=== PATIENT | male | born 1995 | race Caucasian/White ===

== ENCOUNTER 2020-05-28 06:54 | Emergency (ER) | payer OTHER, SELFPAY ==
--- NOTE | 2020-05-28 07:11 | ED_ITS ---
HPI - Arrhythmia/Palpitations General Chief Complaint: Arrhythmia/Palpitations Stated Complaint: PALPITATIONS Time Seen by Provider: 05/28/20 07:11 Source: patient Mode of arrival: ambulatory Limitations: no limitations History of Present Illness MD complaint: rapid heart beat, heart racing and palpitations Onset (ago): hour(s) (1) Duration: constant Severity: moderate Context: occurred during rest and awoke with symptoms Associated symptoms: shortness of breath, nausea and muscle cramps (L arm felt heavy and tingling) Related Data Allergies Allergy/AdvReac Type Severity Reaction Status Date / Time No Known Allergies Allergy Verified 05/28/20 07:16 [No Known Allergies*] Review of Systems Review of Systems: Constitutional : No Weight loss, No Fever, No Chills ENT/Mouth : No sore throat, No Rhinorrhea Eyes: No Eye Pain, No Swelling Cardiovascular : pos Chest Pain, pos SOB, no Dyspnea on Exertion, No Orthopnea, No Edema, pos Palpitations Respiratory : No Cough, No Sputum Gastrointestinal : pos Nausea, No Vomiting, No Diarrhea, No abdominal Pain, No Hematochezia, No Melena Genitourinary : No Dysuria, No Urinary Frequency Musculoskeletal : No joint pain, No Myalgias, No Joint Swelling Skin : No Skin Lesions, No rash Neuro : No Weakness, No Numbness, No Dizziness, No Headache Psych : No Anxiety/Panic, No Depression All other systems reviewed and are negative [facility] Social History Social History (Updated 05/28/20 @ 07:27 by Lizeth Aguirre DO) Alcohol intake: never Smoking Status: Current every day smoker Smoked in Last 30 Days: Yes Use of substances other than those prescribed or required for medical reasons: No Advance Directives: No Advance Directives Information Provided: No Physical Exam Vital Signs: Vital Signs: Vital Signs Temp Pulse Resp BP Pulse Ox 05/28/20 09:41 87 122/75 98 05/28/20 07:16 98.2 F 101 H 20 155/90 H 99 Body Mass Index 0.3 Appearance: Alert. Oriented X3. No acute distress. Anxious Eyes: Pupils equal, round and reactive to light. ENT: Pharynx normal. Neck: Normal inspection. Neck supple. CVS: tachycardic heart rate and rhythm. Pulses normal. Respiratory: No respiratory distress. Breath sounds normal. Abdomen: Soft and nontender. Skin: Skin warm and dry. Normal skin color. Normal skin turgor. Extremities: No lower extremity edema. No calf ttp Neuro: Oriented X 3. No motor deficit. No sensory deficit. Course Course Course Narrative: feels better negative workup, delta trop negative, stable for DC MDM - Arrhythmia/Palpitations MDM Narrative Medical decision making narrative: 24 yo male without any significant ACS risk factors other than smoking comes in with CP/SOB and palpitations, has no calf pain or signs of DVT, does take [employer] supplements but denies steroids or testosterone use at this time will need labs, lytes, troponin, ddimer, dispo per results and findings, no distress distal pulses intact doubt dissection Lab Data Result diagrams: 05/28/20 07:28 05/28/20 07:28 Labs: Lab Results 05/28/20 05/28/20 05/28/20 Range/Units 07:28 07:28 07:28 WBC 8.1 (4.8-10.8) X10*3/uL RBC 5.29 (4.60-5.80) X10*6/uL Hgb 15.1 (14.0-18.0) g/dl Hct 45.9 (42-52) % MCV 86.8 (80-98) fL MCH 28.5 (27.0-33.0) pg MCHC 32.9 (31.0-36.0) g/dl RDW 13.1 (11.0-16.0) % Plt Count 345 (160-400) X10*3/uL MPV 10.0 (9.4-12.4) fL Immature Gran % (Auto) 0.2 (0.0-0.4) % Neut % (Auto) 62.6 (45-73) % Lymph % (Auto) 30.0 (20-40) % [place] % (Auto) 6.4 (2-11) % Eos % (Auto) 0.4 (0-4) % Baso % (Auto) 0.4 (0-2) % Lymph # (Auto) 2.4 (1.2-4.9) X10*3/uL [place] # (Auto) 0.5 (0.1-1.2) X10*3/uL Eos # (Auto) 0.0 (0.0-0.4) X10*3/uL Baso # (Auto) 0.0 (0.0-0.2) X10*3/uL Abs Immat Gran (auto) 0.02 (0.00-0.03) X10*3/uL Absolute Neuts (auto) 5.1 (2.0-8.3) X10*3/uL Absolute Nucleated RBC 0.000 (0.0-0.012) X10*3/uL Nucleated RBC % (auto) 0.0 (0.0-0.2) /100WBC D-Dimer < 200 NG/ML Sodium 137 (135-145) mmol/L Potassium 3.9 (3.3-5.1) mmol/l Chloride 100 (96-108) mmol/L Carbon Dioxide 26 (22-29) mmol/L Anion Gap 15 (12-20) BUN 8 L (9-16) mg/dL Creatinine 0.84 (0.5-1.4) mg/dL Estim Creat Clear Calc 192.1 Estimated GFR > 60 Random Glucose 154 H (60-115) mg/dL Calcium 10.1 (8.4-10.2) mg/dL Magnesium 1.8 (1.6-2.6) mg/dL Total Bilirubin 0.5 (0.0-1.0) mg/dL Direct Bilirubin < 0.2 (0.0-0.5) mg/dL AST 44 H (5-37) U/L ALT 109 H (0-40) U/L Alkaline Phosphatase 97 (39-117) U/L Troponin I High Sens (<3.5-35.0) ng/L Total Protein 7.5 (6.5-8.0) g/dL Albumin 4.7 (3.5-5.0) g/dL Lipase 17 (8-78) U/L TSH 3.46 (0.32-4.0) mIU/mL 05/28/20 05/28/20 Range/Units 07:28 09:25 WBC (4.8-10.8) X10*3/uL RBC (4.60-5.80) X10*6/uL Hgb (14.0-18.0) g/dl Hct (42-52) % MCV (80-98) fL MCH (27.0-33.0) pg MCHC (31.0-36.0) g/dl RDW (11.0-16.0) % Plt Count (160-400) X10*3/uL MPV (9.4-12.4) fL Immature Gran % (Auto) (0.0-0.4) % Neut % (Auto) (45-73) % Lymph % (Auto) (20-40) % [place] % (Auto) (2-11) % Eos % (Auto) (0-4) % Baso % (Auto) (0-2) % Lymph # (Auto) (1.2-4.9) X10*3/uL [place] # (Auto) (0.1-1.2) X10*3/uL Eos # (Auto) (0.0-0.4) X10*3/uL Baso # (Auto) (0.0-0.2) X10*3/uL Abs Immat Gran (auto) (0.00-0.03) X10*3/uL Absolute Neuts (auto) (2.0-8.3) X10*3/uL Absolute Nucleated RBC (0.0-0.012) X10*3/uL Nucleated RBC % (auto) (0.0-0.2) /100WBC D-Dimer NG/ML Sodium (135-145) mmol/L Potassium (3.3-5.1) mmol/l Chloride (96-108) mmol/L Carbon Dioxide (22-29) mmol/L Anion Gap (12-20) BUN (9-16) mg/dL Creatinine (0.5-1.4) mg/dL Estim Creat Clear Calc Estimated GFR Random Glucose (60-115) mg/dL Calcium (8.4-10.2) mg/dL Magnesium (1.6-2.6) mg/dL Total Bilirubin (0.0-1.0) mg/dL Direct Bilirubin (0.0-0.5) mg/dL AST (5-37) U/L ALT (0-40) U/L Alkaline Phosphatase (39-117) U/L Troponin I High Sens < 3.5 < 3.5 (<3.5-35.0) ng/L Total Protein (6.5-8.0) g/dL Albumin (3.5-5.0) g/dL Lipase (8-78) U/L TSH (0.32-4.0) mIU/mL ECG Data Attestation: I personally reviewed and interpreted this ECG as follows: ECG interpretation date: 05/28/20 ECG interpretation time: 07:28 Interpretation: Rate: 105 Rhythm: sinus tachycardia [place]: normal Normal P waves. Normal TOMAS. Normal QRS complex. ST T wave : nonspecific qTC: normal prior studies: none The study has been interpreted contemporaneously by me. . Discharge Plan Discharge Clinical Impression: Palpitations, Elevated LFTs Patient Disposition: Home, Self-Care Instructions: Heart Palpitations (ED) Additional Instructions: stop taking supplements, your doctor needs to recheck liver function in 1 week Referrals: Physician,Unknown [Primary Care Provider] - 1 week Stand Alone Forms: Work/School Release
--- NOTE | 2020-05-28 07:14 | ECG_ITS ---
Test Reason : PALPATATIONS Blood Pressure : / mmHG Vent. Rate : 105 BPM Atrial Rate : 105 BPM P-R Int : 134 ms QRS Dur : 098 ms QT Int : 334 ms P-R-T Axes : 053 089 -10 degrees QTc Int : 441 ms Sinus tachycardia Nonspecific T wave abnormality Abnormal ECG No previous ECGs available Referred By: Lizeth Aguirre Electronically Signed By:MARY CARMEN SNYDER MD
--- NOTE | 2020-05-28 07:15 | XR_ITS ---
EXAMINATION: XR CHEST CLINICAL INFORMATION: Palpitations COMPARISON: None TECHNIQUE: Frontal view of the chest was obtained. FINDINGS: The cardiomediastinal silhouette is within normal limits. The lungs are well expanded. There is no focal consolidation, edema, or effusion. No pneumothorax. No acute osseous abnormality. IMPRESSION: No evidence of acute process.
[2020-05-28 07:16] VITALS: BP 155/90; PULSE 101; RESP 20; TEMP 36.8; O2SAT 99
[2020-05-28 07:33] LABS: MANUAL DIFF FLAG NO
[2020-05-28 07:38] LABS: Basophils Percent Auto 0.4 % (0-2); Eosinophils Percent Auto 0.4 % (0-4); Hematocrit 45.9 % (42-52); Hemoglobin 15.1 g/dl (14.0-18.0); Imm Gran Abs Auto 0.02 X10*3/uL (0.00-0.03); Imm Gran Pct Auto 0.2 % (0.0-0.4); Lymphocytes Absolute Auto 2.4 X10*3/uL (1.2-4.9); Mean Corpuscular HGB Conc 32.9 g/dl (31.0-36.0); Mean Corpuscular Hemoglobin 28.5 pg (27.0-33.0); Mean Corpuscular Volume 86.8 fL (80-98); Monocytes Absolute Auto 0.5 X10*3/uL (0.1-1.2); Monocytes Percent Auto 6.4 % (2-11); Neutrophils Absolute Auto 5.1 X10*3/uL (2.0-8.3); Neutrophils Percent Auto 62.6 % (45-73); Platelet Count 345 X10*3/uL (160-400); Red Blood Count 5.29 X10*6/uL (4.60-5.80); Red Cell Distribution Width 13.1 % (11.0-16.0); White Blood Count 8.1 X10*3/uL (4.8-10.8)
[2020-05-28] MEDS: 0.9 % Sodium Chloride 1,000 ML 999 ML IVCONT (07:39)
[2020-05-28 08:01] VITALS: PULSE 95
[2020-05-28 08:06] LABS: Troponin-I High Sensitivity < 3.5 ng/L (<3.5-35.0)
[2020-05-28 08:13] LABS: Alanine Aminotransferase 109 U/L (0-40); Albumin Level 4.7 g/dL (3.5-5.0); Alkaline Phosphatase 97 U/L (39-117); Anion Gap 15 (12-20); Aspartate Amino Transferase 44 U/L (5-37); Bilirubin Direct < 0.2 mg/dL (0.0-0.5); Bilirubin Total 0.5 mg/dL (0.0-1.0); Blood Urea Nitrogen 8 mg/dL (9-16); Calcium 10.1 mg/dL (8.4-10.2); Carbon Dioxide 26 mmol/L (22-29); Chloride 100 mmol/L (96-108); Creatinine Clr Calc Pharmacy 192.1; Estimated Glomerular Filt Rate > 60; Glucose Random 154 mg/dL (60-115); Lipase 17 U/L (8-78); Magnesium 1.8 mg/dL (1.6-2.6); Potassium 3.9 mmol/l (3.3-5.1); Sodium 137 mmol/L (135-145); Total Protein 7.5 g/dL (6.5-8.0)
[2020-05-28 08:23] LABS: Thyroid Stimulating Hormone 3.46 mIU/mL (0.32-4.0)
[2020-05-28 08:41] LABS: D Dimer < 200 NG/ML
[2020-05-28 09:41] VITALS: BP 122/75; PULSE 87; O2SAT 98
[2020-05-28 10:15] LABS: Troponin-I High Sensitivity < 3.5 ng/L (<3.5-35.0)
== END 2020-05-28 11:29 | disposition home or self-care (01) ==
PROVIDERS: Emergency Provider Emergency Medicine
DX: R00.2 Palpitations (principal); R79.89 Other specified abnormal findings of blood chemistry; F17.200 Nicotine dependence, unspecified, uncomplicated
CPT/HCPCS: 36415; 71045; 80048; 80076; 83690; 83735; 84443; 84484; 85025; 85379; 93005; 96360; 99284

== ENCOUNTER 2021-06-24 19:18 | Emergency (ER) | payer OTHER, SELFPAY ==
[2021-06-24 19:59] VITALS: BP 118/75; PULSE 89; RESP 16; TEMP 36.8; O2SAT 97; BMI 33.9
[2021-06-24 20:25] LABS: COVID-19 Test Negative (Negative)
[2021-06-24 20:48] VITALS: BP 132/76; PULSE 84; RESP 14; TEMP 36.8; O2SAT 98
--- NOTE | 2021-06-24 20:58 | ED_ITS ---
HPI - Headache General Chief Complaint: Headache Stated Complaint: migraine Time Seen by Provider: 06/24/21 20:53 Source: patient Mode of arrival: ambulatory Limitations: no limitations History of Present Illness HPI Narrative: Patient comes emergency room complaining of a headache since yesterday. Patient complaining also of sinus pressure. Patient has tried to take Tylenol and ibuprofen without significant relief. Patient also used some nasal spray to help with the sinus pressure. Patient denies fever chills, no neck pain, no cough. Related Data Previous Rx's Medication Instructions Recorded acetaminophen 500 mg tablet 500 mg PO Q6H PRN #14 tab 06/24/21 fexofenadine 60 mg tablet (Kaitlynn 60 mg PO BID #7 tab 06/24/21 Allergy) fluticasone propionate 50 1 spray INTRANASAL BID #16 g 06/24/21 mcg/actuation nasal spray,suspension (Flonase Allergy Relief) metoclopramide HCl 5 mg tablet 5 mg PO DAILY PRN #7 tab 06/24/21 (Reglan) Allergies Allergy/AdvReac Type Severity Reaction Status Date / Time No Known Allergies Allergy Verified 05/28/20 07:16 [No Known Allergies*] Review of Systems Review of Systems: Constitutional : No Weight loss, No Fever, No Chills, No Night Sweats, No Fatigue, No Malaise ENT/Mouth : No Hearing loss, No Ear Pain, complaining of nasal congestion and sinus pain No Hoarseness, No sore throat, No Rhinorrhea, No Swallowing Difficulty Eyes: No Eye Pain, No Swelling, No Redness, No Foreign Body, No Discharge, No Vision Changes Cardiovascular : No Chest Pain, No SOB, No Dyspnea on Exertion, No Orthopnea, No Edema, No Palpitations Respiratory : No Cough, No Sputum, No Wheezing, No Smoke Exposure, No Dyspnea Gastrointestinal : No Nausea, No Vomiting, No Diarrhea, No Constipation, No abdominal Pain, No Hematochezia, No Melena Genitourinary : no irregular bleeding, No Dysuria, No Urinary Frequency, No Hematuria, No Urinary Incontinence, No Urgency, No Flank Pain, No Urinary Flow Changes, No Hesitancy Musculoskeletal : No joint pain, No Myalgias, No Joint Swelling Skin : No Skin Lesions, No rash Neuro : No Weakness, No Numbness, No Paresthesias, No Loss of Consciousness, No Dizziness, complaining of Headache Psych : No Anxiety/Panic, No Depression, No SI/HI/AH/VH, No Social Issues, Heme/Lymph: No Bruising, No Bleeding,No Lymphadenopathy Endocrine : No Polyuria, No Polydipsia, No Temperature Intolerance COUNTS INCLUDE 234 BEDS AT THE [facility] Social History Social History (Updated 05/28/20 @ 07:27 by Lizeth Aguirre DO) Alcohol intake: never Advance Directives: No Advance Directives Information Provided: Yes Physical Exam Vital Signs: Vital Signs: Last Vital Signs Temp 98.2 F 06/24/21 20:48 Pulse 84 06/24/21 20:48 Resp 14 06/24/21 20:48 BP 132/76 06/24/21 20:48 Pulse Ox 98 06/24/21 20:48 Body Mass Index 33.9 Const: Other: Appearance: Alert. Oriented X3. No acute distress. Eyes: Pupils equal, round and reactive to light. ENT: Pharynx normal. Mild pain to pressure over the ethmoid sinuses Neck: Normal inspection. Neck supple. No lymph nodes noted. No crepitus CVS: Normal heart rate and rhythm. Pulses normal. Normal S1 and S2 Respiratory: No respiratory distress. Breath sounds normal. No Wheezing. No rales Abdomen: Soft and nontender. No rigidity. No distention. good BS x4 Skin: Skin warm and dry. Normal skin color. Normal skin turgor. Extremities: No lower extremity edema. No Lacerations. No Rash Neuro: Oriented X 3. No motor deficit. No sensory deficit. Moving all extermities. No slurred speech. Course Course Course Narrative: Patient was given IV fluids, ketorolac, Reglan, Benadryl. Patient likely has a viral infection as well. Patient tested negative for COVID-19. After IV hydration and IV medications, patient is reassessment, anticipating patient being discharged home. Sign-out given to Dr. Aguirre MDM - Headache Lab Data Labs: Lab Results 06/24/21 Range/Units 20:07 COVID-19 ([place]) Negative (Negative) COVID-19 Clin Com See Note Discharge Plan Discharge Clinical Impression: Headache, Sinusitis Patient Disposition: Home, Self-Care Instructions: Acute Headache (ED) Additional Instructions: Please follow-up with your primary care physician tomorrow. If you have any worsening or new symptoms, please return to the emergency room or call 911 Prescriptions: New acetaminophen 500 mg tablet 500 mg PO Q6H PRN (Reason: pain) Qty: 14 RF: 0 metoclopramide HCl [Reglan] 5 mg tablet 5 mg PO DAILY PRN (Reason: nausea and vomiting) Qty: 7 RF: 0 fluticasone propionate [Flonase Allergy Relief] 50 mcg/actuation spray,suspension 1 spray intranasal BID Qty: 16 RF: 0 fexofenadine [Kaitlynn Allergy] 60 mg tablet 60 mg PO BID Qty: 7 RF: 0
[2021-06-24] MEDS: diphenhydrAMINE HCL 50 MG/ML VIAL 25 MG IVPUSH (21:47)
[2021-06-24] MEDS: 0.9 % Sodium Chloride 1,000 ML 999 ML IVCONT (21:48)
[2021-06-24] MEDS: Ketorolac Tromethamine 15 MG/ML VIAL 30 MG IVPUSH (21:48)
[2021-06-24] MEDS: Metoclopramide HCl 10 MG/2 ML VIAL IVPUSH (21:48)
== END 2021-06-24 22:22 | disposition home or self-care (01) ==
PROVIDERS: Emergency Provider Emergency Medicine; PCP Internal Medicine
DX: R51.9 Headache, unspecified (principal); J32.9 Chronic sinusitis, unspecified; Z20.822 Contact with and (suspected) exposure to COVID-19
CPT/HCPCS: 36415; 87635; 96361; 96374; 96375; 99283; 99284; J1200; J1885; J2765

== ENCOUNTER 2022-05-04 15:24 | Emergency (ER) | payer OTHER, SELFPAY ==
--- NOTE | ~2022-05-04 | US_ITS ---
EXAMINATION: US SCROTUM CLINICAL INFORMATION: Scrotal pain and swelling. COMPARISON: Scrotal ultrasound 12/27/2018 TECHNIQUE: A sonogram of the scrotum was performed assessing arizmendi-scale appearance and color Doppler flow. Spectral Doppler analysis of the arterial and venous flow were performed in the testes bilaterally. FINDINGS: RIGHT: Right testicle measures 4.9 x 2.5 x 3.6 cm, volume 24.3 mL. No focal testicular parenchymal lesions are visualized. Spectral Doppler analysis of the arterial and venous flow is normal in the right testis. Right epididymal head is normal in size. No right hydrocele or varicocele is seen. Right epididymal Doppler flow is normal. Small 3 mm anechoic epididymal head cyst noted incidentally. LEFT: Left testicle measures 4.7 x 2.3 x 3 cm, volume 17.8 mL. No focal testicular parenchymal lesions are visualized. Few small microcalcifications noted in the upper pole, of no clinical significance. Spectral Doppler analysis of the arterial and venous flow is normal in the left testis. Left epididymal head is normal in size. No left hydrocele or varicocele is seen. Left epididymal Doppler flow is normal. Small 2 mm and 3 mm epididymal head cysts noted incidentally. US/US scrotum doppler IMPRESSION: 1. No evidence of testicular torsion or epididymoorchitis. 2. No hydrocele or varicocele.
--- NOTE | ~2022-05-04 | US_ITS ---
EXAMINATION: US SCROTUM CLINICAL INFORMATION: Scrotal pain and swelling. COMPARISON: Scrotal ultrasound 12/27/2018 TECHNIQUE: A sonogram of the scrotum was performed assessing arizmendi-scale appearance and color Doppler flow. Spectral Doppler analysis of the arterial and venous flow were performed in the testes bilaterally. FINDINGS: RIGHT: Right testicle measures 4.9 x 2.5 x 3.6 cm, volume 24.3 mL. No focal testicular parenchymal lesions are visualized. Spectral Doppler analysis of the arterial and venous flow is normal in the right testis. Right epididymal head is normal in size. No right hydrocele or varicocele is seen. Right epididymal Doppler flow is normal. Small 3 mm anechoic epididymal head cyst noted incidentally. LEFT: Left testicle measures 4.7 x 2.3 x 3 cm, volume 17.8 mL. No focal testicular parenchymal lesions are visualized. Few small microcalcifications noted in the upper pole, of no clinical significance. Spectral Doppler analysis of the arterial and venous flow is normal in the left testis. Left epididymal head is normal in size. No left hydrocele or varicocele is seen. Left epididymal Doppler flow is normal. Small 2 mm and 3 mm epididymal head cysts noted incidentally. US/US scrotum IMPRESSION: 1. No evidence of testicular torsion or epididymoorchitis. 2. No hydrocele or varicocele.
[2022-05-04 15:31] VITALS: BP 115/73; PULSE 83; RESP 18; TEMP 36.6; O2SAT 98; BMI 33.4
[2022-05-04 17:23] LABS: MANUAL DIFF FLAG NO
[2022-05-04 17:25] LABS: Basophils Percent Auto 0.4 % (0-2); Eosinophils Percent Auto 0.4 % (0-4); Hematocrit 42.5 % (42.0-52.0); Hemoglobin 14.3 g/dl (14.0-18.0); Imm Gran Abs Auto 0.01 X10*3/uL (0.00-0.03); Imm Gran Pct Auto 0.1 % (0.0-0.4); Lymphocytes Absolute Auto 3.8 X10*3/uL (1.2-4.9); Lymphocytes Percent Auto 39.8 % (20-40); Mean Corpuscular HGB Conc 33.6 g/dl (31.0-36.0); Mean Corpuscular Hemoglobin 28.9 pg (27.0-33.0); Mean Corpuscular Volume 85.9 fL (80.0-98.0); Mean Platelet Volume 10.2 fL (9.4-12.4); Monocytes Absolute Auto 0.9 X10*3/uL (0.1-1.2); Monocytes Percent Auto 9.3 % (2-11); Neutrophils Absolute Auto 4.8 x10*3/uL (2.0-8.3); Platelet Count 359 X10*3/uL (160-400); Red Blood Count 4.95 X10*6/uL (4.60-5.80); Red Cell Distribution Width 13.3 % (11.0-16.0); White Blood Count 9.7 X10*3/uL (4.8-10.8)
[2022-05-04 17:26] LABS: Appearance Urine Clear; Color Urine Yellow; Glucose Urine UA Negative (Negative); Leukocyte Esterase Urine Negative (Negative); Nitrite Urine Negative (Negative); PH 5.5 (5.0-9.0); Urine Blood Negative (Negative); Urine Ketones Trace mg/dL (Negative); Urine Protein Negative (Neg-Trace)
[2022-05-04 17:44] LABS: Alanine Aminotransferase 55 U/L (0-40); Albumin Level 4.6 g/dL (3.5-5.0); Alkaline Phosphatase 89 U/L (39-117); Anion Gap 15 (12-20); Aspartate Amino Transferase 23 U/L (5-37); Bilirubin Total 0.3 mg/dL (0.0-1.0); Blood Urea Nitrogen 11 mg/dL (9-16); Calcium 9.5 mg/dL (8.4-10.2); Carbon Dioxide 22 mmol/L (22-29); Chloride 107 mmol/L (96-108); Creatinine Clr Calc Pharmacy 174.7; Estimated Glomerular Filt Rate > 60; Glucose Random 96 mg/dL (60-115); Sodium 140 mmol/L (135-145); Total Protein 7.3 g/dL (6.5-8.0)
--- NOTE | 2022-05-04 18:48 | ED_ITS ---
HPI - Male Genitourinary General Chief complaint: Urogenital-Male Stated complaint: pain in L testicle rad. to L leg Time Seen by Provider: 05/04/22 16:14 Source: patient Mode of arrival: ambulatory Limitations: no limitations History of Present Illness HPI Narrative: 26-year-old male presents to the ED for left testicular pain since Wednesday. Patient states also mild dysuria. Denies any penile lesions, penile discharge, or testicular swelling. Patient denies any recent trauma to genital area. Patient states he has not been sexually active for long time and no history of STDs. Patient admits to doing squats at the gym on Wednesday and then symptoms started after. Patient denies seeing any mass or bulging in the groin or testicle. Related Data Previous Rx's Medication Instructions Recorded acetaminophen 500 mg tablet 500 mg PO Q6H PRN pain #14 tabs 06/24/21 fexofenadine 60 mg tablet (Kaitlynn 60 mg PO BID #7 tabs 06/24/21 Allergy) fluticasone propionate 50 1 spray intranasal BID #16 grams 06/24/21 mcg/actuation nasal spray,suspension (Flonase Allergy Relief) metoclopramide HCl 5 mg tablet 5 mg PO DAILY PRN nausea and 06/24/21 (Reglan) vomiting #7 tabs doxycycline hyclate 100 mg capsule 100 mg PO BID 7 days #14 caps 05/04/22 naproxen 500 mg tablet 500 mg PO BID PRN pain 10 days #20 05/04/22 tabs Allergies Allergy/AdvReac Type Severity Reaction Status Date / Time No Known Allergies Allergy Verified 05/28/20 07:16 [No Known Allergies*] Review of Systems Review of Systems: Left testicular pain Yes all other systems are reviewed and are negative [facility] Social History Social History (Updated 05/28/20 @ 07:27 by Anu Aguirre DO) Alcohol intake: never Advance Directives: No Advance Directives Information Provided: No Physical Exam Vital Signs: Vital Signs: Last Vital Signs Temp 97.8 F 05/04/22 15:31 Pulse 83 05/04/22 15:31 Resp 18 05/04/22 15:31 BP 115/73 05/04/22 15:31 Pulse Ox 98 05/04/22 15:31 O2 Del Method 05/04/22 15:31 BMI result Body Mass Index 33.4 Const: General: cooperative, healthy appearing, comfortable, no acute distress, well developed, alert, awake and Physically active Diaz entation/consciousness: oriented to person, oriented to time and patient oriented x3 HEENT: Head: Yes normal to inspection, Yes No palpable skull fracture present, Yes normocephalic, Yes atraumatic and No abrasion Eyes: General: appearance normal, both eyes and all related structures Neck: Neck: Yes normal visual inspection, Yes full ROM, Yes no lymphadenopathy, Yes no meningeal signs, Yes trachea midline, Yes supple, No a nterior neck swelling and No tender Chest: Chest palpation & inspection: normal inspection of the chest and normal palpation of entire chest wall Resp: Effort & Inspection: normal respiratory effort and able to speak in complete sentences Auscultation: clear to auscultation bilaterally Cardio: Jugular venous distension: no JVD Heart sounds: S1 normal heart sound present and S2 normal heart sound present GI: Inspection: Yes normal to inspection and No abdominal wall ecchymosis Palpation (GI): Soft to palpation, not firm, nontender, no guarding and not rigid : Other: Negative for hernia on palpation of groin and testicles. General: No CVA tenderness and Yes no CVA tenderness Male General Exam: Yes normal external exam Penis: normal penis and circumcised Meatus: meatus normal Scrotum: scrotum normal Testes: testicular tenderness Back/Spine/Pelvis: Back: no CVA tenderness, No CVA tenderness and No back tenderness Skin: General skin exam: no rashes or lesions noted, elasticity normal and turgor normal Neuro: General: oriented to person, oriented to time, patient oriented x3, gait normal, tone normal, moves all extremities, no meningeal signs, no focal motor deficits and deep tendon reflexes 2+ bilaterally Extrem: General: Yes normal to inspection and Yes full ROM Psych: Appearance: grossly normal, well kempt and not disheveled Course Course Course Narrative: Labs ordered, UA, ultrasound ordered. Reevaluation(s) Reevaluation #1: Ultrasound came back negative for orchitis or epididymitis. UA negative for blo od or infection. Labs are normal. Chlamydia gonorrhea ordered. Patient agreeable to prophylactic treatment. MDM - Male Genitourinary MDM Narrative Medical decision making narrative: Testicular pain Lab Data Result diagrams: 05/04/22 17:18 05/04/22 17:18 Labs: Lab Results 05/04/22 05/04/22 05/04/22 Range/Units 17:18 17:18 17:18 WBC 9.7 (4.8-10.8) X10*3/uL RBC 4.95 (4.60-5.80) X10*6/uL Hgb 14.3 (14.0-18.0) g/dl Hct 42.5 (42.0-52.0) % MCV 85.9 (80.0-98.0) fL MCH 28.9 (27.0-33.0) pg MCHC 33.6 (31.0-36.0) g/dl RDW 13.3 (11.0-16.0) % Plt Count 359 (160-400) X10*3/uL MPV 10.2 (9.4-12.4) fL Immature Gran % (Auto) 0.1 (0.0-0.4) % Neut % (Auto) 50.0 (45-73) % Lymph % (Auto) 39.8 (20-40) % [place] % (Auto) 9.3 (2-11) % Eos % (Auto) 0.4 (0-4) % Baso % (Auto) 0.4 (0-2) % Lymph # (Auto) 3.8 (1.2-4.9) X10*3/uL [place] # (Auto) 0.9 (0.1-1.2) X10*3/uL Eos # (Auto) 0.0 (0.0-0.4) X10*3/uL Baso # (Auto) 0.0 (0.0-0.2) X10*3/uL Abs Immat Gran (auto) 0.01 (0.00-0.03) X10*3/uL Absolute Neuts (auto) 4.8 (2.0-8.3) x10*3/uL Absolute Nucleated RBC 0.000 (0.0-0.012) X10*3/uL Nucleated RBC % (auto) 0.0 (0.0-0.2) /100WBC Sodium 140 (135-145) mmol/L Potassium 4.0 (3.3-5.1) mmol/L Chloride 107 (96-108) mmol/L Carbon Dioxide 22 (22-29) mmol/L Anion Gap 15 (12-20) BUN 11 (9-16) mg/dL Creatinine 0.74 (0.5-1.4) mg/dL Estim Creat Clear Calc 174.7 Estimated GFR > 60 Random Glucose 96 D (60-115) mg/dL Calcium 9.5 (8.4-10.2) mg/dL Total Bilirubin 0.3 (0.0-1.0) mg/dL AST 23 D (5-37) U/L ALT 55 H (0-40) U/L Alkaline Phosphatase 89 (39-117) U/L Total Protein 7.3 (6.5-8.0) g/dL Albumin 4.6 (3.5-5.0) g/dL Urine Color Yellow Urine Appearance Clear Urine pH 5.5 (5.0-9.0) Ur Specific [place] 1.020 (1.005-1.025) Urine Protein Negative (Neg-Trace) mg/dL Urine Glucose (UA) Negative (Negative) mg/dL Urine Ketones Trace (Negative) mg/dL Urine Blood Negative (Negative) Urine Nitrite Negative (Negative) Ur Leukocyte Esterase Negative (Negative) Discharge Plan Discharge Clinical Impression: Pain in left testicle Patient Disposition: Home, Self-Care Instructions: Testicle Pain (ED) Additional Instructions: Your blood work and urine came back negative. Your scrotum ultrasound came back negative. Please follow-up with the primary care provider. Return to the ED immediately for any bloody urine, worsening testicular pain, abdominal pain, nausea, vomiting, fever, chills, flank pain, or any other concerning symptoms. Prescriptions: New doxycycline hyclate 100 mg capsule 100 mg PO BID 7 Days Qty: 14 0RF naproxen 500 mg tablet 500 mg PO BID PRN (Reason: pain) 10 Days Qty: 20 0RF No Action acetaminophen 500 mg tablet 500 mg PO Q6H PRN (Reason: pain) Qty: 14 0RF metoclopramide HCl [Reglan] 5 mg tablet 5 mg PO DAILY PRN (Reason: nausea and vomiting) Qty: 7 0RF fluticasone propionate [Flonase Allergy Relief] 50 mcg/actuation spray,suspension 1 spray intranasal BID Qty: 16 0RF Rx Instructions: administer into each nostril fexofenadine [Kaitlynn Allergy] 60 mg tablet 60 mg PO BID Qty: 7 0RF Stand Alone Forms: Work/School Release Print Language: Jamaican
[2022-05-04] MEDS: cefTRIAXone sodium 500 MG, Lidocaine HCl 1 % MPF 1 ML IM (19:46)
[2022-05-05 01:23] LABS: CT PCR NOT DETECTED (Not Detect.); NG PCR NOT DETECTED (Not Detect.)
== END 2022-05-04 23:11 | disposition home or self-care (01) ==
PROVIDERS: Physician Assistant; Emergency Provider Internal Medicine; PCP Internal Medicine
DX: N50.812 Left testicular pain (principal)
CPT/HCPCS: 36415; 76870; 80053; 81003; 85025; 87491; 87591; 93975; 96372; 99282; 99284; J0696

== ENCOUNTER 2023-05-18 10:48 | Emergency (ER) | payer OTHER, SELFPAY ==
--- NOTE | ~2023-05-18 | CT_ITS ---
EXAMINATION: CT ABDOMEN AND PELVIS WITH CONTRAST CLINICAL INFORMATION: Left lower quadrant pain and diarrhea COMPARISON: None available. TECHNIQUE: Multidetector volumetric images were obtained from the superior aspect of the liver through the pubic symphysis following administration 85 mL of Omnipaque 350 intravenous contrast. Sagittal and coronal reformatted images were obtained on the technologist's workstation. Oral contrast: Yes This CT examination was performed using dose optimization techniques as appropriate, variously including the following: *Automated exposure control *Adjustment of mA and/or kV according to patient size (this includes techniques or standardized protocols for targeted exams where dose is matched to indication/reason for exam; i.e. extremities or head) *Use of iterative reconstruction technique DLP: 740 mGy-cm FINDINGS: LUNG BASES: The visualized lung bases are unremarkable. LIVER, GALLBLADDER, AND BILIARY TREE: The liver is shape. The liver is slightly enlarged, right lobe measuring 19.5 cm. The liver is low in attenuation suggestive of fatty infiltration. No focal hepatic lesion or biliary ductal dilatation is present. The gallbladder is unremarkable with no evidence of radiopaque gallstones, gallbladder wall thickening, or obvious pericholecystic inflammatory changes. PANCREAS: Unremarkable. SPLEEN: Slightly enlarged measuring 13 cm. ADRENAL GLANDS: Unremarkable. KIDNEYS AND URETERS: The kidneys are normal in size, shape, and attenuation. No hydronephrosis, hydroureter, or calculi seen. No perinephric stranding. BLADDER: Unremarkable. GASTROINTESTINAL TRACT: Diverticulosis of the colon. No evidence of diverticulitis. Question mild wall thickening of the left colon and sigmoid colon. Slight prominence of the vasa recta. Findings are questionable for mild colitis as opposed to changes due to underdistention. Small and large bowel is otherwise unremarkable. The appendix is not seen. No inflammatory changes seen in the right lower quadrant. ABDOMINAL WALL: Small small bowel mesentery, retroperitoneal and retrocrural lymph nodes. No ascites. LYMPH NODES: Normal. VASCULAR: Unremarkable. PELVIC VISCERA: Unremarkable. OSSEOUS STRUCTURES: Unremarkable. CT/CT abdomen pelvis w IV con IMPRESSION: Question mild colitis of the distal colon versus changes due to underdistention. Mild diverticulosis of the colon. No evidence of diverticulitis. Shotty small bowel mesentery, retroperitoneal and retrocrural lymphadenopathy. Fatty liver. Mild hepatosplenomegaly. Fleischner guidelines were followed.
[2023-05-18 10:54] VITALS: BP 120/63; PULSE 90; RESP 18; TEMP 37; O2SAT 98; BMI 35.2
[2023-05-18 11:11] LABS: MANUAL DIFF FLAG NO
[2023-05-18 11:12] LABS: Basophils Percent Auto 0.3 % (0-2); Hematocrit 48.3 % (42.0-52.0); Imm Gran Abs Auto 0.01 X10*3/uL (0.00-0.03); Imm Gran Pct Auto 0.1 % (0.0-0.4); Lymphocytes Absolute Auto 1.5 X10*3/uL (1.2-4.9); Lymphocytes Percent Auto 21.4 % (20-40); Mean Corpuscular HGB Conc 33.1 g/dl (31.0-36.0); Mean Corpuscular Volume 84.6 fL (80.0-98.0); Mean Platelet Volume 9.5 fL (9.4-12.4); Monocytes Absolute Auto 0.9 X10*3/uL (0.1-1.2); Monocytes Percent Auto 12.1 % (2-11); Neutrophils Absolute Auto 4.7 x10*3/uL (2.0-8.3); Neutrophils Percent Auto 66.1 % (45-73); Platelet Count 246 X10*3/uL (160-400); Red Blood Count 5.71 X10*6/uL (4.60-5.80); Red Cell Distribution Width 13.5 % (11.0-16.0); White Blood Count 7.2 X10*3/uL (4.8-10.8)
[2023-05-18 11:17] VITALS: BP 120/76; PULSE 87; RESP 17; TEMP 37.1; O2SAT 99
[2023-05-18 11:34] LABS: Alanine Aminotransferase 56 U/L (0-40); Albumin Level 4.7 g/dL (3.5-5.0); Alkaline Phosphatase 102 U/L (39-117); Anion Gap 15 (12-20); Aspartate Amino Transferase 33 U/L (5-37); Bilirubin Total 0.5 mg/dL (0.0-1.0); Blood Urea Nitrogen 11 mg/dL (9-16); Calcium 10.3 mg/dL (8.4-10.2); Carbon Dioxide 25 mmol/L (22-29); Chloride 103 mmol/L (96-108); Creatinine Clr Calc Pharmacy 127.3; Estimated Glomerular Filt Rate > 60; Glucose Random 93 mg/dL (60-115); Potassium 4.5 mmol/L (3.3-5.1); Sodium 138 mmol/L (135-145); Total Protein 7.9 g/dL (6.5-8.0)
--- NOTE | 2023-05-18 11:39 | ED_ITS ---
HPI - Abdominal Pain General Chief Complaint: Abdominal Pain Stated Complaint: Abd pain/nausea Time Seen by Provider: 05/18/23 11:22 Source: patient Mode of arrival: ambulatory Limitations: no limitations History of Present Illness HPI narrative: 27 yo male with no sig PMH ate at [employer] restaurant on Wednesday night then wednesday developed n/v/d and intense suprapubic and LLQ pain without fevers. No travel or abx use. This has not happened before. He has no sick contacts. No blood reported. MD elicited complaint: abdominal pain Pertinent past history: none Onset (ago): day(s) (4) Pain Consistency: constant Location: periumbilical and suprapubic Severity: moderate Quality: cramping and stabbing Radiation: none Migration to: no migration Exacerbating factors: eating and movement Relieving factors: nothing Context: possible food poisoning Associated symptoms: nausea, vomiting, diarrhea, fever and chills Related Data Previous Rx's Medication Instructions Recorded acetaminophen 500 mg tablet 500 mg PO Q6H PRN pain #14 tabs 06/24/21 fexofenadine 60 mg tablet (Kaitlynn 60 mg PO BID #7 tabs 06/24/21 Allergy) fluticasone propionate 50 1 spray intranasal BID #16 grams 06/24/21 mcg/actuation nasal spray,suspension (Flonase Allergy Relief) metoclopramide HCl 5 mg tablet 5 mg PO DAILY PRN nausea and 06/24/21 (Reglan) vomiting #7 tabs doxycycline hyclate 100 mg capsule 100 mg PO BID 7 days #14 caps 05/04/22 naproxen 500 mg tablet 500 mg PO BID PRN pain 10 days #20 05/04/22 tabs ondansetron 4 mg disintegrating 4 mg PO Q8H PRN nausea and 05/18/23 tablet vomiting #20 tabs Allergies Allergy/AdvReac Type Severity Reaction Status Date / Time No Known Allergies Allergy Verified 05/18/23 10:54 [No Known Allergies*] Review of Systems Review of Systems Constitutional : No Weight loss, pos Fever, pos Chills ENT/Mouth : No sore throat, No Rhinorrhea Eyes: No Swelling, No Redness Cardiovascular : No Chest Pain, No SOB, NoEdema Respiratory : No Cough, No Sputum, No Wheezing Gastrointestinal : Positive Nausea, Positive Vomiting, positive Diarrhea, positive abdominal Pain, No Hematochezia, No Melena Genitourinary : No Dysuria, No Urinary Frequency, No Hematuria, No Urgency Musculoskeletal : No joint pain, No Myalgias, No Joint Swelling Skin : No Skin Lesions, No rash Neuro : No Weakness, No Numbness, No Dizziness, No Headache Psych : No Anxiety/Panic, No Depression Heme/Lymph: No Bruising, No Lymphadenopathy Endocrine : No Polyuria, No Polydipsia All other systems reviewed and are negative. [facility] Past Medical History Attestation statement: The following information was validated with the patient. Medical History No pertinent past medical history Surgical History S/P appendectomy Social History Social History (Updated 05/18/23 @ 11:49 by Anu Aguirre DO) Alcohol intake: never Patient Tobacco Use Status: Never used Tobacco Advance Directives: No Advance Directives Information Provided: No Physical Exam ED Vital Signs: Vital Signs - 24 hr 05/18/23 10:54 05/18/23 11:17 05/18/23 12:44 Temperature 98.6 F 98.8 F Pulse Rate 90 87 82 Respiratory Rate 18 17 17 Blood Pressure 120/63 120/76 113/67 Pulse Oximetry 98 99 98 Oxygen Delivery Method Room Air Room Air Room Air 05/18/23 14:18 Temperature Pulse Rate 72 Respiratory Rate 17 Blood Pressure 102/55 L Pulse Oximetry 97 Oxygen Delivery Method BMI result Body Mass Index 35.2 Appearance: Alert. Oriented X3. No acute distress. Eyes: Pupils equal, round and reactive to light. ENT: Pharynx normal. Neck: Normal inspection. Neck supple. CVS: Normal heart rate and rhythm. Pulses normal. Respiratory: No respiratory distress. Breath sounds normal. Abdomen: Soft and moderate lower abdominal ttp and LLQ pain no rebound Skin: Skin warm and dry. Normal skin color. Normal skin turgor. Extremities: No lower extremity edema. No calf ttp Neuro: Oriented X 3. No motor deficit. No sensory deficit. Medical Decision Making Medical Decision Making MDM Narrative: 27 yo male with no sig PMH s/p appendectomy here with c/o lower abdominal pain n/v/d and fevers after eating chicken tikka masala at [employer] restaurant - no travel or abx use at this time will obtain basic labs, hydrate, IVF, IV toradol and IV morphine for pain. CT scan for colitis / diverticulitis ordered. Differential Diagnosis Differential Diagnoses: The differential diagnosis associated with the presentation includes viral syndrome, colitis, food toxicity, diverticulitis Admission/Observation Consideration of admission/observation: Escalation of care including admission/observation considered no diarrhea here, lytes normal, no WBC count no blood stools mild colitis on imaging at this time given normal immune status would hold off antibiotics. Lab Data MDM Lab Attestation statement: I reviewed the patient's lab results. 05/18/23 11:06 05/18/23 11:06 Labs: Lab Results 05/18/23 05/18/23 Range/Units 11:06 11:54 WBC 7.2 (4.8-10.8) X10*3/uL RBC 5.71 (4.60-5.80) X10*6/uL Hgb 16.0 (14.0-18.0) g/dl Hct 48.3 (42.0-52.0) % MCV 84.6 (80.0-98.0) fL MCH 28.0 (27.0-33.0) pg MCHC 33.1 (31.0-36.0) g/dl RDW 13.5 (11.0-16.0) % Plt Count 246 D (160-400) X10*3/uL MPV 9.5 (9.4-12.4) fL Immature Gran % (Auto) 0.1 (0.0-0.4) % Neut % (Auto) 66.1 (45-73) % Lymph % (Auto) 21.4 (20-40) % [place] % (Auto) 12.1 H (2-11) % Eos % (Auto) 0.0 (0-4) % Baso % (Auto) 0.3 (0-2) % Lymph # (Auto) 1.5 (1.2-4.9) X10*3/uL [place] # (Auto) 0.9 (0.1-1.2) X10*3/uL Eos # (Auto) 0.0 (0.0-0.4) X10*3/uL Baso # (Auto) 0.0 (0.0-0.2) X10*3/uL Abs Immat Gran (auto) 0.01 (0.00-0.03) X10*3/uL Absolute Neuts (auto) 4.7 (2.0-8.3) x10*3/uL Absolute Nucleated RBC 0.000 (0.0-0.012) X10*3/uL Nucleated RBC % (auto) 0.0 (0.0-0.2) /100WBC Sodium 138 (135-145) mmol/L Potassium 4.5 (3.3-5.1) mmol/L Chloride 103 (96-108) mmol/L Carbon Dioxide 25 (22-29) mmol/L Anion Gap 15 (12-20) BUN 11 (9-16) mg/dL Creatinine 1.00 (0.5-1.4) mg/dL Estim Creat Clear Calc 127.3 Estimated GFR > 60 Random Glucose 93 (60-115) mg/dL Calcium 10.3 H D (8.4-10.2) mg/dL Total Bilirubin 0.5 (0.0-1.0) mg/dL AST 33 (5-37) U/L ALT 56 H (0-40) U/L Alkaline Phosphatase 102 (39-117) U/L Total Protein 7.9 (6.5-8.0) g/dL Albumin 4.7 (3.5-5.0) g/dL Urine Color Yellow Urine Appearance Clear Urine pH 6.5 (5.0-9.0) Ur Specific [place] 1.025 (1.005-1.025) Urine Protein Negative (Neg-Trace) mg/dL Urine Glucose (UA) Negative (Negative) mg/dL Urine Ketones Negative (Negative) mg/dL Urine Blood Negative (Negative) Urine Nitrite Negative (Negative) Ur Leukocyte Esterase Negative (Negative) Independent Interpretation I performed an independent interpretation of an: CT Scan Radiology Impression Discussion of test interpretation with radiology: I have reviewed the radiologist's reading. Prescription Management I considered prescription management with: Other Medications Administered Discontinued Medications Generic Name Dose Route Start Last Admin Trade Name Freq PRN Reason Stop Dose Admin Sodium Chloride 1,000 mls @ 999 mls/hr 05/18/23 11:45 05/18/23 15:04 Ns IV 05/18/23 12:45 Infused .Q1H1M JAIRO Infusion Iohexol 85 ml 05/18/23 13:06 05/18/23 13:07 Iohexol 350 Mg/Ml 100 Ml Infus..Btl IV 05/18/23 13:07 85 ml ONCE ONE Administration Ketorolac Tromethamine 15 mg 05/18/23 11:38 05/18/23 12:05 Ketorolac Tromethamine 15 Mg/Ml Vial IVPUSH 05/18/23 11:39 15 mg ONCE ONE Administration Morphine Sulfate 4 mg 05/18/23 11:38 05/18/23 12:05 Morphine Sulfate 4 Mg/Ml Cartridge IVPUSH 05/18/23 11:39 4 mg ONCE ONE Administration Protocol Ondansetron HCl 4 mg 05/18/23 11:38 05/18/23 12:05 Ondansetron Hcl 4 Mg/2 Ml Vial IVPUSH 05/18/23 11:39 4 mg ONCE ONE Administration Discharge Plan Discharge Clinical Impression: Colitis Patient Disposition: Home, Self-Care Instructions: Colitis (ED) Additional Instructions: your labs were normal no dehydration, normal counts no signs of infection. CT scan shows mild possible inflammation of the large intestine. at this time given normal immune status I would hold off on any antibiotics. return for worsening fevers, pain, bloody stools or any other concerns this should improve in 2 to 3 days. BLAND diet over 48 hours with lots of fluids then advance as tolerated. Prescriptions: New ondansetron 4 mg tablet,disintegrating 4 mg PO Q8H PRN (Reason: nausea and vomiting) Qty: 20 0RF No Action acetaminophen 500 mg tablet 500 mg PO Q6H PRN (Reason: pain) Qty: 14 0RF metoclopramide HCl [Reglan] 5 mg tablet 5 mg PO DAILY PRN (Reason: nausea and vomiting) Qty: 7 0RF fluticasone propionate [Flonase Allergy Relief] 50 mcg/actuation spray,suspension 1 spray intranasal BID Qty: 16 0RF Rx Instructions: administer into each nostril fexofenadine [Kaitlynn Allergy] 60 mg tablet 60 mg PO BID Qty: 7 0RF doxycycline hyclate 100 mg capsule 100 mg PO BID 7 Days Qty: 14 0RF naproxen 500 mg tablet 500 mg PO BID PRN (Reason: pain) 10 Days Qty: 20 0RF Stand Alone Forms: Work/School Release
--- NOTE | 2023-05-18 12:00 | PC.NURSE ---
pt is alert and oriented, skin appropriate for ethnicity, respirations even and unlabored, pt reports since Wednesday having abd pain right under his belly button/nausea but no vomiting/multiple episodes of diarrhea but no blood noticed in the stool, dizziness and reports having fevers and chills at home but never checked his temp at home. no fever while in the ed
[2023-05-18] MEDS: ondansetron HCL 4 MG/2 ML VIAL IVPUSH (12:05)
[2023-05-18] MEDS: Ketorolac Tromethamine 15 MG/ML VIAL IVPUSH (12:05)
[2023-05-18] MEDS: Morphine Sulfate 4 MG/ML CARTRIDGE IVPUSH (12:05)
[2023-05-18] MEDS: 0.9 % Sodium Chloride 1,000 ML 999 ML IV (12:06)
[2023-05-18 12:08] LABS: Appearance Urine Clear; Color Urine Yellow; Glucose Urine UA Negative (Negative); Leukocyte Esterase Urine Negative (Negative); Nitrite Urine Negative (Negative); PH 6.5 (5.0-9.0); Specific Gravity - Urine 1.025 (1.005-1.025); Urine Blood Negative (Negative); Urine Ketones Negative (Negative); Urine Protein Negative (Neg-Trace)
[2023-05-18 12:44] VITALS: BP 113/67; PULSE 82; RESP 17; O2SAT 98
[2023-05-18] MEDS: iohexoL 350 MG/ML 100 ML INFUS..BTL 85 ML IV (13:07)
[2023-05-18 14:18] VITALS: BP 102/55; PULSE 72; RESP 17; O2SAT 97
== END 2023-05-18 15:27 | disposition home or self-care (01) ==
PROVIDERS: Emergency Provider Emergency Medicine; PCP Internal Medicine
DX: K52.9 Noninfective gastroenteritis and colitis, unspecified (principal); R11.2 Nausea with vomiting, unspecified; Z79.899 Other long term (current) drug therapy
CPT/HCPCS: 36415; 74177; 80053; 81003; 85025; 96361; 96374; 96375; 99284; 99285; J1885; J2270; J2405; Q9967